=== PATIENT | female | born 1960 | race African-American/Black ===

== ENCOUNTER 2024-10-31 18:54 | Emergency (ER) | payer OTHER, BC ==
[2024-10-31 19:14] VITALS: BP 163/80; PULSE 77; RESP 18; TEMP 97.4; BMI 27.7
[2024-10-31] MEDS ORDERED: IBUPROFEN 600 MG TABLET (FP) PO ONE (19:58)
[2024-10-31] MEDS ORDERED: IBUPROFEN 400 MG TABLET (FP) PO ONE (19:59)
[2024-10-31] MEDS ORDERED: LIDOCAINE 4% PATCH TP ONE (19:59)
[2024-10-31] MEDS ORDERED: ACETAMINOPHEN 500 MG TABLET (FP) ONE (19:59)
[2024-10-31] MEDS: LIDOCAINE 4% PATCH TP ONE (20:08)
[2024-10-31] MEDS: IBUPROFEN 400 MG TABLET (FP) PO ONE (20:08)
[2024-10-31] MEDS: ACETAMINOPHEN 500 MG TABLET (FP) PO ONE (20:09)
[2024-10-31] MEDS ORDERED: METHOCARBAMOL 500 MG TABLET ONE (20:18)
[2024-10-31] MEDS: METHOCARBAMOL 500 MG TABLET PO ONE (20:51)
== END 2024-10-31 20:52 | disposition home or self-care (01) ==
LOC: JERFT 18:54
DX: M54.6 Pain in thoracic spine (principal); M54.2 Cervicalgia; M54.50 Low back pain, unspecified; R07.2 Precordial pain; V49.40XA Driver injured in collision with unspecified motor vehicles in traffic accident, initial encounter
CPT/HCPCS: 71046-TC-FY; 72100-TC-FY; 99284-25